=== PATIENT | male | born 2000 | race American Indian/Alaskan Native ===

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

== ENCOUNTER 2021-03-08 10:53 | Emergency (ER) | payer MEDICAID ==
[2021-03-08] MEDS ORDERED: ONDANSETRON 4 MG/2 ML INJ IV ONE (12:06)
[2021-03-08] MEDS ORDERED: MORPHINE 4 MG/1 ML INJ IV ONE (12:06)
[2021-03-08] MEDS ORDERED: SODIUM CHLORIDE 0.9% 1000 ML 1,000 ML IV ONE (12:06)
--- NOTE | 2021-03-08 12:10 | Emergency Department Report ---
HPI - General Chief Complaint: Abdominal Pain Time Seen by Provider: 03/08/21 12:02 - HPI HPI: This is a 20-year-old -[place] male presents to the emergency department with a complaint of a 1 day history of generalized abdominal pain, nausea, vomi ting. Patient says that he keeps going in between feeling "hot and cold." Patient says he has seen gastroenterology in the past for this but has gotten "no answers." When asked if the patient has any past medical history he says "I do not know." It does not appear that the patient has a primary care physician. He is an occasional tobacco smoker and a regular marijuana smoker. No recent travel or sick contacts at home. He has not taken anything for symptoms prior to presentation today. He says that his abdominal pain is 9 out of 10 in intensity. No known aggravating or alleviating factors. ED Past Medical Hx - Past Medical History Hx Asthma: Yes - Social History Smoking Status: Current Some Day Smoker Substance Use Type: None - Medications Home Medications: Home Medications Medication Instructions Recorded Confirmed Last Taken Type ALBUTEROL Inhaler(NF) [VENTOLIN 1 puff IH Q4-6H PRN #1 inha 11/15/18 Unknown Rx Inhaler(NF)] Ibuprofen [Ibu] 400 mg PO TID PRN #15 tablet 11/15/18 Unknown Rx Ibuprofen [Motrin 800 MG tab] 800 mg PO Q8HR PRN #30 tablet 05/08/20 Unknown Rx Sulfamethoxazole/Trimethoprim 1 each PO BID 7 Days #14 tablet 05/08/20 Unknown Rx [Bactrim DS TAB] Famotidine [Pepcid] 40 mg PO QHS #30 tablet 12/22/20 Unknown Rx Sucralfate [Carafate] 1 gm PO ACHS 7 Days #21 tablet 12/22/20 Unknown Rx Dicyclomine [Bentyl] 10 mg PO QID #20 capsule 03/08/21 Unknown Rx Famotidine [Pepcid] 20 mg PO BID #20 tablet 03/08/21 Unknown Rx Ondansetron [Zofran ODT TAB] 4 mg PO Q8HR PRN #15 tab.rapdis 03/08/21 Unknown Rx ED Review of Systems ROS: Stated complaint: VOMITING Other details as noted in HPI Comment: All other systems reviewed and negative Constitutional: chills, diaphoresis Eyes: denies: eye pain, vision change ENT: denies: ear pain, throat pain Respiratory: denies: cough, shortness of breath Cardiovascular: denies: chest pain, palpitations Gastrointestinal: abdominal pain, nausea, vomiting Genitourinary: denies: dysuria, discharge Musculoskeletal: denies: joint swelling, arthralgia Skin: denies: rash, lesions Neurological: denies: headache, weakness Physical Exam - Physical Exam Vital Signs: Vital Signs 03/08/21 11:16 Temperature 97.6 F Pulse Rate 80 Respiratory 24 Rate Blood Pressure 186/158 O2 Sat by Pulse 100 Oximetry Physical Exam: GENERAL: The patient is well-developed well-nourished. HENT: Normocephalic. Atraumatic. Patient has moist mucous membranes. EYES: Extraocular motions are intact. NECK: Supple. Trachea is midline. CHEST/LUNGS: Clear to auscultation. There is no respiratory distress noted. HEART/CARDIOVASCULAR: Regular. There is no tachycardia. There is no murmur. ABDOMEN: Abdomen is soft. Generalized abdominal tenderness to palpation. No guarding. Patient has normal bowel sounds. There is no abdominal distention. SKIN: Skin is warm and dry. NEURO: The patient is awake, alert, and oriented. The patient is cooperative. The patient has no focal neurologic deficits. Normal speech. MUSCULOSKELETAL: There is no tenderness or deformity. There is no limitation range of motion. ED Course Vital Signs 03/08/21 11:16 Temperature 97.6 F Pulse Rate 80 Respiratory 24 Rate Blood Pressure 186/158 O2 Sat by Pulse 100 Oximetry ED Medical Decision Making - Lab Data Result diagrams: 03/08/21 13:04 03/08/21 13:04 Lab Results 03/08/21 03/08/21 03/08/21 Range/Units 13:04 13:04 Unknown WBC 7.8 (4.5-11.0) K/mm3 RBC 5.05 H (3.65-5.03) M/mm3 Hgb 15.0 (11.8-15.2) gm/dl Hct 44.3 (35.5-45.6) % MCV 88 (84-94) fl MCH 30 (28-32) pg MCHC 34 (32-34) % RDW 13.7 (13.2-15.2) % Plt Count 132 L (140-440) K/mm3 Lymph % (Auto) 5.4 L (13.4-35.0) % [place] % (Auto) 4.9 (0.0-7.3) % Eos % (Auto) 0.0 (0.0-4.3) % Baso % (Auto) 0.2 (0.0-1.8) % Lymph # (Auto) 0.4 L (1.2-5.4) K/mm3 [place] # (Auto) 0.4 (0.0-0.8) K/mm3 Eos # (Auto) 0.0 (0.0-0.4) K/mm3 Baso # (Auto) 0.0 (0.0-0.1) K/mm3 Seg Neutrophils % 89.5 H (40.0-70.0) % Seg Neutrophils # 6.9 (1.8-7.7) K/mm3 Sodium 135 L (137-145) mmol/L Potassium 4.1 (3.6-5.0) mmol/L Chloride 101.7 (98-107) mmol/L Carbon Dioxide 23 (22-30) mmol/L Anion Gap 14 mmol/L BUN 14 (9-20) mg/dL Creatinine 0.9 (0.8-1.3) mg/dL Estimated GFR > 60 ml/min BUN/Creatinine Ratio 16 % Glucose 105 H (75-100) mg/dL Calcium 9.1 (8.4-10.2) mg/dL Total Bilirubin 0.50 (0.1-1.2) mg/dL Direct Bilirubin < 0.2 (0-0.2) mg/dL Indirect Bilirubin 0.3 mg/dL AST 23 (5-40) units/L ALT 14 (7-56) units/L Alkaline Phosphatase 87 (35-129) units/L Total Protein 6.8 (6.3-8.2) g/dL Albumin 4.3 (3.9-5) g/dL Albumin/Globulin Ratio 1.7 % Lipase 17 (13-60) units/L Urine Color Yellow (Yellow) Urine Turbidity Clear (Clear) Urine pH 9.0 H (5.0-7.0) Ur Specific [place] 1.019 (1.003-1.030) Urine Protein 100 mg/dl (Negative) mg/dL Urine Glucose (UA) Neg (Negative) mg/dL Urine Ketones 20 (Negative) mg/dL Urine Blood Neg (Negative) Urine Nitrite Neg (Negative) Urine Bilirubin Neg (Negative) Urine Urobilinogen < 2.0 (<2.0) mg/dL Ur Leukocyte Esterase Neg (Negative) Urine WBC (Auto) 1.0 (0.0-6.0) /HPF Urine RBC (Auto) 4.0 (0.0-6.0) /HPF Urine Bacteria (Auto) 1+ (Negative) /HPF - Radiology Data Radiology results: image reviewed interpreted by me: Abdominal x-ray shows nonspecific nonobstructive bowel gas. No free air. - Medical Decision Making This patient presents with acute abdominal pain, nausea, vomiting. The patient has had this multiple times in the recent past. He had an evaluation by gastroenterology 2 months ago that did not show any etiology of these symptoms. The patient is a regular marijuana smoker, but it may not be secondary to cannabinoid hyperemesis syndrome as the symptoms began prior to the patient becoming a regular marijuana smoker. On examination he has some mild abdominal reproducible tenderness to palpation. However, the abdomen is soft, nondistended and nontoxic in appearance. An abdominal x-ray was done that shows nonspecific nonobstructive bowel gas, and there is no free air. The patient's labs are mostly unremarkable including CBC, metabolic panel, lipase, urinalysis, except for some mild dehydration seen with 20 ketones in the urine. He was given IV fluid resuscitation, IV analgesia and a dose of IV antiemetics. He was reevaluated multiple times over multiple hours and is feeling greatly improved. The patient was later given a GI cocktail due to the burning sensation he felt in his throat and chest and this also helped with the symptoms. He appears safe for discharge home at this time. He was able to pass an oral challenge. He has been given a prescription for Pepcid, Bentyl and Zofran ODT. He has been instructed to follow-up with primary care and return to his ga stroenterologist. He will return to the emergency department with any worsening of his symptoms or with any acute distress. Critical Care Time: No Critical care attestation.: If time is entered above; I have spent that time in minutes in the direct care of this critically ill patient, excluding procedure time. ED Disposition Clinical Impression: Dehydration Abdominal pain Qualifiers: Abdominal location: generalized Qualified Code(s): R10.84 - Generalized abdominal pain Nausea & vomiting Qualifiers: Vomiting type: unspecified Vomiting Intractability: unspecified Qualified Code(s): R11.2 - Nausea with vomiting, unspecified Disposition: DC-01 TO HOME OR SELFCARE Is pt being admited?: No Condition: Stable Instructions: Abdominal Pain, Adult, Nausea and Vomiting, Adult, Dehydration, Adult Additional Instructions: Please increase your oral rehydration. Please follow-up with a primary care physician in the next few days. 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 Return to the emergency department with any worsening of your symptoms, new or concerning symptoms not addressed during this current emergency department visit, or with any acute distress. Prescriptions: Dicyclomine [Bentyl] 10 mg PO QID #20 capsule Famotidine [Pepcid] 20 mg PO BID #20 tablet Ondansetron [Zofran ODT TAB] 4 mg PO Q8HR PRN #15 tab.rapdis PRN Reason: nausea/vomiting Referrals: PRIMARY CARE, [Primary Care Provider] - 3-5 Days [facility] [Provider Group] - 3-5 Days Time of Disposition: 16:06
--- NOTE | 2021-03-08 13:00 | XRay Report ---
ABDOMEN 2 VIEWS INDICATION / CLINICAL INFORMATION: Abd pain. COMPARISON: None available. FINDINGS: TUBES / LINES: None. BOWEL GAS PATTERN: There is no evidence of bowel obstruction or mass effect. FREE AIR / EXTRALUMINAL GAS: None seen. ADDITIONAL FINDINGS: There is mild thoracolumbar scoliosis. CHEST: Visualized chest shows no significant abnormality. IMPRESSION: No acute abnormality. Signer Name: Charles Ortiz MD Signed: 03/08/2021 12:54 PM Workstation Name: [id number]
[2021-03-08 14:08] LABS: Basophils % (Auto) 0.2 % (0.0-1.8); Hematocrit 44.3 % (35.5-45.6); Lymphocytes # (Auto) 0.4 K/mm3 (1.2-5.4); Lymphocytes % (Auto) 5.4 % (13.4-35.0); Mean Corpuscular HGB Conc 34 % (32-34); Mean Corpuscular Volume 88 fl (84-94); Monocytes # (Auto) 0.4 K/mm3 (0.0-0.8); Monocytes % (Auto) 4.9 % (0.0-7.3); Platelet Count 132 K/mm3 (140-440); Red Blood Count 5.05 M/mm3 (3.65-5.03); Red Cell Distribution Width 13.7 % (13.2-15.2)
[2021-03-08] MEDS ORDERED: FAMOTIDINE 20 MG/2 ML INJ IV ONE (14:09)
[2021-03-08 14:32] LABS: Alanine Aminotransferase 14 units/L (7-56); Albumin 4.3 g/dL (3.9-5); BUN/Creatinine Ratio 16; Blood Urea Nitrogen 14 mg/dL (9-20); Calcium 9.1 mg/dL (8.4-10.2); Hemolysis Index 23
[2021-03-08 14:42] LABS: Bilirubin,Direct < 0.2 mg/dL (0-0.2)
[2021-03-08] MEDS ORDERED: LIDOCAINE VISCOUS 2% 15 ML ORAL LIQD PO ONE (14:59)
[2021-03-08] MEDS ORDERED: ALUM-MAG HYDROXIDE-SIMETHICONE 200-200-20MG/5ML ORAL LIQD 30 ML PO ONE (14:59)
[2021-03-08 15:53] LABS: Bacteria,Urine 1+ /HPF (Negative); Bilirubin,Urine NEG (Negative); Blood,Urine NEG (Negative); Color,Urine Yellow (Yellow); Urobilinogen,Urine < 2.0 mg/dL (<2.0)
[2021-03-08 16:50] VITALS: BP 128/52
== END 2021-03-08 16:28 | disposition home or self-care (01) ==
LOC: ED 10:53
DX: E86.0 Dehydration (principal); R11.2 Nausea with vomiting, unspecified; R10.84 Generalized abdominal pain; J45.909 Unspecified asthma, uncomplicated; F17.200 Nicotine dependence, unspecified, uncomplicated; Z79.899 Other long term (current) drug therapy
CPT/HCPCS: 36415; 74019; 80048; 80076; 81001; 83690; 85025; 96361; 96374; 96375; 99284; J2270; J2405; J7030

== ENCOUNTER 2021-07-08 16:40 | Emergency (ER) | payer MEDICAID ==
[2021-07-08] MEDS ORDERED: SUCRALFATE 1 GM/10 ML ORAL LIQD PO ONE (17:43)
[2021-07-08] MEDS ORDERED: HYDROcodone/ACETAMINOPHEN 5-325 MG TAB PO ONE (17:43)
[2021-07-08] MEDS ORDERED: ONDANSETRON 4 MG ODT TAB PO ONE (17:43)
[2021-07-08] MEDS ORDERED: FAMOTIDINE 20 MG TAB PO ONE (17:44)
--- NOTE | 2021-07-08 17:44 | Emergency Department Report ---
ED Abdominal Pain HPI - General Chief Complaint: Abdominal Pain Stated Complaint: ABD PAIN Time Seen by Provider: 07/08/21 17:16 Source: patient Mode of arrival: Ambulatory Limitations: No Limitations - History of Present Illness Initial Comments: 21-year-old male presents to the ER today with complaints of abdominal pain. Patient reports diffuse abdominal pain, but mainly upper. He states that has been having this pain constantly for the past year. Patient states that he has been to the ER for his pain has had CT scans, with unclear diagnosis. He states that he was referred to GI specialist whom he has been seen for his pain. He states that the GI specialist thinks it could be related to ulcers. He states that he and the GI specialist have talked about doing an endoscopy, but this has not been scheduled yet. He states that he has been prescribed medication to help with symptoms. He remembers being on Zofran, promethazine, Bentyl and sucralfa te, but he states that he ran out of this medication 2 weeks ago. He states that he feels like they were helping but since being out he has been having increasing abdominal pain. He states that he has been nauseous, and did vomit today. His last bowel movement was yesterday and was normal. He denies any urinary issues. He denies any prior abdominal surgeries. He states that he drinks alcohol occasionally. He does smoke marijuana. He denies any other illicit drug use. MD Complaint: abdominal pain -: year(s) (1) - Related Data Previous Rx's Medication Instructions Recorded Last Taken Type ALBUTEROL Inhaler(NF) [VENTOLIN 1 puff IH Q4-6H PRN #1 inha 11/15/18 Unknown Rx Inhaler(NF)] Ibuprofen [Ibu] 400 mg PO TID PRN #15 tablet 11/15/18 Unknown Rx Ibuprofen [Motrin 800 MG tab] 800 mg PO Q8HR PRN #30 tablet 05/08/20 Unknown Rx Sulfamethoxazole/Trimethoprim 1 each PO BID 7 Days #14 tablet 05/08/20 Unknown Rx [Bactrim DS TAB] Famotidine [Pepcid] 20 mg PO BID #20 tablet 03/08/21 Unknown Rx Dicyclomine [Bentyl] 10 mg PO QID #20 capsule 07/08/21 Unknown Rx Famotidine [Pepcid] 40 mg PO QHS #30 tablet 07/08/21 Unknown Rx Ondansetron [Zofran ODT TAB] 4 mg PO Q8HR PRN #15 tab.rapdis 07/08/21 Unknown Rx Sucralfate [Carafate] 1 gm PO ACHS 7 Days #21 tablet 07/08/21 Unknown Rx Allergies Allergy/AdvReac Type Severity Reaction Status Date / Time No Known Allergies Allergy Verified 03/08/21 12:39 ED Review of Systems ROS: Stated complaint: ABD PAIN Other details as noted in HPI Comment: All other systems reviewed and negative Constitutional: denies: chills, fever Eyes: denies: eye pain, eye discharge, vision change ENT: denies: ear pain, throat pain Respiratory: denies: cough, shortness of breath, SOB with exertion, SOB at rest, wheezing Cardiovascular: denies: chest pain, palpitations Endocrine: no symptoms reported Gastrointestinal: abdominal pain, nausea, vomiting. denies: diarrhea, constipation, hematemesis, melena, hematochezia Genitourinary: denies: urgency, dysuria, frequency, hematuria, discharge, testicular pain Musculoskeletal: denies: back pain, joint swelling, arthralgia, myalgia Skin: denies: rash, lesions, change in color, change in hair/nails, pruritus Neurological: denies: headache, weakness, numbness, paresthesias, confusion, abnormal gait, vertigo Psychiatric: denies: anxiety, depression, auditory hallucinations, visual hallucinations, homicidal thoughts, suicidal thoughts Hematological/Lymphatic: denies: easy bleeding, swollen glands ED Past Medical Hx - Past Medical History Previous Medical History?: Yes Hx Asthma: Yes - Surgical History Past Surgical History?: No - Social History Smoking Status: Current Some Day Smoker Substance Use Type: None - Medications Home Medications: Home Medications Medication Instructions Recorded Confirmed Last Taken Type ALBUTEROL Inhaler(NF) [VENTOLIN 1 puff IH Q4-6H PRN #1 inha 11/15/18 Unknown Rx Inhaler(NF)] Ibuprofen [Ibu] 400 mg PO TID PRN #15 tablet 11/15/18 Unknown Rx Ibuprofen [Motrin 800 MG tab] 800 mg PO Q8HR PRN #30 tablet 05/08/20 Unknown Rx Sulfamethoxazole/Trimethoprim 1 each PO BID 7 Days #14 tablet 05/08/20 Unknown Rx [Bactrim DS TAB] Famotidine [Pepcid] 20 mg PO BID #20 tablet 03/08/21 Unknown Rx Dicyclomine [Bentyl] 10 mg PO QID #20 capsule 07/08/21 Unknown Rx Famotidine [Pepcid] 40 mg PO QHS #30 tablet 07/08/21 Unknown Rx Ondansetron [Zofran ODT TAB] 4 mg PO Q8HR PRN #15 tab.rapdis 07/08/21 Unknown Rx Sucralfate [Carafate] 1 gm PO ACHS 7 Days #21 tablet 07/08/21 Unknown Rx ED Physical Exam - General Limitations: No Limitations General appearance: alert, in no apparent distress - Head Head exam: Present: atraumatic, normocephalic, normal inspection - Eye Eye exam: Present: normal appearance, PERRL, EOMI Pupils: Present: normal accommodation - Neck Neck exam: Present: normal inspection, full ROM - Respiratory Respiratory exam: Present: normal lung sounds bilaterally. Absent: respiratory distress, wheezes, rales, rhonchi - Cardiovascular Cardiovascular Exam: Present: regular rate, normal rhythm, normal heart sounds - GI/Abdominal GI/Abdominal exam: Present: soft, tenderness (mild epigastric ttp ). Absent: distended, guarding, rebound, rigid - Neurological Exam Neurological exam: Present: alert, oriented X3, CN II-XII intact, normal gait - Psychiatric Psychiatric exam: Present: normal affect, normal mood - Skin Skin exam: Present: intact ED Course Vital Signs 07/08/21 07/08/21 16:47 17:51 Temperature 98 F Pulse Rate 98 H Respiratory 16 16 Rate Blood Pressure 111/69 [Left] O2 Sat by Pulse 96 Oximetry ED Medical Decision Making - Lab Data Result diagrams: 07/08/21 18:14 07/08/21 18:14 - Medical Decision Making Labs reviewed and unremarkable. Patient currently sitting in the recliner, in no distress and currently on his phone. He has not had any vomiting during stay He has a nonsurgical abdominal exam. He is not toxic or ill-appearing. Is neurologically intact. The history, exam, diagnostic testing and current condition do not suggest acute appendicitis, bowel obstruction, acute cholecystitis, bowel perforation, major GI bleed, testicular torsion, sepsis or other significant pathology to warrant further testing, continued ED treatment, admission or surgical evaluation at this point. Discussed results with patient. Informed him that he needs to called to follow- up with his GI specialist to get that endoscopy scheduled. In the meantime we will get refills on his medications. Patient expressed understanding of all instructions and agree with plan. Patient stable at time of discharge. Critical care attestation.: If time is entered above; I have spent that time in minutes in the direct care of this critically ill patient, excluding procedure time. ED Disposition Clinical Impression: Chronic abdominal pain Disposition: HOME / SELF CARE / HOMELESS Is pt being admited?: No Does the pt Need Aspirin: No Condition: Stable Instructions: Abdominal Pain, Adult, [id number] Additional Instructions: I recommend that you take the medications as prescribed. I recommend that you continue follow-up with your GI specialist to get that endoscopy done. Return to the ER if your symptoms changes or worsens in any way. Prescriptions: Famotidine [Pepcid] 40 mg PO QHS #30 tablet Dicyclomine [Bentyl] 10 mg PO QID #20 capsule Sucralfate [Carafate] 1 gm PO ACHS 7 Days #21 tablet Ondansetron [Zofran ODT TAB] 4 mg PO Q8HR PRN #15 tab.rapdis PRN Reason: nausea/vomiting Referrals: [facility] [Provider Group] - 3-5 Days Time of Disposition: 19:45 Print Language: MAURITIAN
[2021-07-08 18:48] LABS: Basophils % (Auto) 0.3 % (0.0-1.8); Eosinophils % (Auto) 0.2 % (0.0-4.3); Hematocrit 44.6 % (35.5-45.6); Hemoglobin 14.7 gm/dl (11.8-15.2); Mean Corpuscular HGB Conc 33 % (32-34); Mean Corpuscular Volume 89 fl (84-94); Monocytes # (Auto) 0.4 K/mm3 (0.0-0.8); Monocytes % (Auto) 8.8 % (0.0-7.3); Platelet Count 174 K/mm3 (140-440); Red Blood Count 5.02 M/mm3 (3.65-5.03); Red Cell Distribution Width 13.8 % (13.2-15.2)
[2021-07-08 18:50] LABS: Alanine Aminotransferase 13 units/L (7-56); Albumin 4.8 g/dL (3.9-5); BUN/Creatinine Ratio 12; Blood Urea Nitrogen 11 mg/dL (9-20); Calcium 9.5 mg/dL (8.4-10.2); Hemolysis Index 13
[2021-07-08 20:04] VITALS: BP 124/62
== END 2021-07-08 20:52 | disposition home or self-care (01) ==
LOC: ED 16:40
DX: R10.9 Unspecified abdominal pain (principal); J45.909 Unspecified asthma, uncomplicated; F17.200 Nicotine dependence, unspecified, uncomplicated
CPT/HCPCS: 36415; 80053; 83690; 85025; 99283; Q0162

== ENCOUNTER 2022-02-16 15:33 | Emergency (ER) | payer MEDICAID ==
--- NOTE | 2022-02-16 16:46 | Emergency Department Report ---
ED General Adult HPI - General Stated complaint: RT INJURY PUI?: No Time Seen by Provider: 02/16/22 16:17 - History of Present Illness Initial comments: . Severity scale (0 -10): 7 - Related Data Previous Rx's Medication Instructions Recorded Last Taken Type ALBUTEROL Inhaler(NF) [VENTOLIN 1 puff IH Q4-6H PRN #1 inha 11/15/18 Unknown Rx Inhaler(NF)] Ibuprofen [Ibu] 400 mg PO TID PRN #15 tablet 11/15/18 Unknown Rx Ibuprofen [Motrin 800 MG tab] 800 mg PO Q8HR PRN #30 tablet 05/08/20 Unknown Rx Sulfamethoxazole/Trimethoprim 1 each PO BID 7 Days #14 tablet 05/08/20 Unknown Rx [Bactrim DS TAB] Famotidine [Pepcid] 20 mg PO BID #20 tablet 03/08/21 Unknown Rx Dicyclomine [Bentyl] 10 mg PO QID #20 capsule 07/08/21 Unknown Rx Famotidine [Pepcid] 40 mg PO QHS #30 tablet 07/08/21 Unknown Rx Ondansetron [Zofran ODT TAB] 4 mg PO Q8HR PRN #15 tab.rapdis 07/08/21 Unknown Rx Sucralfate [Carafate] 1 gm PO ACHS 7 Days #21 tablet 07/08/21 Unknown Rx Allergies Allergy/AdvReac Type Severity Reaction Status Date / Time No Known Allergies Allergy Verified 03/08/21 12:39 ED Review of Systems ROS: Stated complaint: RT INJURY Other details as noted in HPI ED Past Medical Hx - Past Medical History Hx Asthma: Yes - Social History Smoking Status: Never Smoker Substance Use Type: None - Medications Home Medications: Home Medications Medication Instructions Recorded Confirmed Last Taken Type ALBUTEROL Inhaler(NF) [VENTOLIN 1 puff IH Q4-6H PRN #1 inha 11/15/18 Unknown Rx Inhaler(NF)] Ibuprofen [Ibu] 400 mg PO TID PRN #15 tablet 11/15/18 Unknown Rx Ibuprofen [Motrin 800 MG tab] 800 mg PO Q8HR PRN #30 tablet 05/08/20 Unknown Rx Sulfamethoxazole/Trimethoprim 1 each PO BID 7 Days #14 tablet 05/08/20 Unknown Rx [Bactrim DS TAB] Famotidine [Pepcid] 20 mg PO BID #20 tablet 03/08/21 Unknown Rx Dicyclomine [Bentyl] 10 mg PO QID #20 capsule 07/08/21 Unknown Rx Famotidine [Pepcid] 40 mg PO QHS #30 tablet 07/08/21 Unknown Rx Ondansetron [Zofran ODT TAB] 4 mg PO Q8HR PRN #15 tab.rapdis 07/08/21 Unknown Rx Sucralfate [Carafate] 1 gm PO ACHS 7 Days #21 tablet 07/08/21 Unknown Rx ED Physical Exam - General General appearance: alert, in no apparent distress - Head Head exam: Present: atraumatic, normocephalic - Eye Eye exam: Present: normal appearance - ENT ENT exam: Present: mucous membranes moist - Neck Neck exam: Present: normal inspection - Respiratory Respiratory exam: Present: normal lung sounds bilaterally. Absent: respiratory distress - Cardiovascular Cardiovascular Exam: Present: regular rate, normal rhythm. Absent: systolic murmur, diastolic murmur, rubs, gallop - GI/Abdominal GI/Abdominal exam: Present: soft, normal bowel sounds - Rectal Rectal exam: Present: deferred - Extremities Exam Extremities exam: Present: normal inspection - Back Exam Back exam: Present: normal inspection - Neurological Exam Neurological exam: Present: alert, oriented X3 - Psychiatric Psychiatric exam: Present: normal affect, normal mood - Skin Skin exam: Present: warm, dry, intact, normal color. Absent: rash Critical care attestation.: If time is entered above; I have spent that time in minutes in the direct care of this critically ill patient, excluding procedure time. ED Disposition Disposition: 01 HOME / SELF CARE / HOMELESS Is pt being admited?: No Does the pt Need Aspirin: No Condition: Stable
[2022-02-16] MEDS ORDERED: LORazepam 1 MG TAB PO ONE (16:58)
[2022-02-16 18:03] VITALS: BP 142/65
--- NOTE | 2022-02-16 18:51 | XRay Report ---
RIGHT FOREARM 2 VIEWS RIGHT WRIST 4 VIEWS RIGHT HAND 3 VIEWS INDICATION: Right upper extremity pain after fall. COMPARISON: No relevant prior imaging study available. FINDINGS: Right hand: No acute skeletal abnormality. No significant soft tissue swelling. Right wrist: No acute skeletal abnormality. No soft tissue swelling. Right forearm: No acute fracture or dislocation. No focal soft tissue swelling. IMPRESSION: 1. No acute findings. Signer Name: Julian Roberts MD Signed: 02/16/2022 6:47 PM Workstation Name: [id number]
[2022-02-16] MEDS ORDERED: IBUPROFEN 600 MG TAB PO ONE (20:03)
[2022-02-16] MEDS ORDERED: oxyCODONE /ACETAMINOPHEN 5-325MG TAB PO ONE (20:03)
[2022-02-16] MEDS ORDERED: ONDANSETRON 4 MG ODT TAB PO ONE (20:03)
--- NOTE | 2022-02-16 20:08 | Emergency Department Report ---
ED Fall HPI - General Chief Complaint: Extremity Injury, Upper Stated Complaint: RT INJURY Time Seen by Provider: 02/16/22 16:17 Source: patient Mode of arrival: Ambulatory - History of Present Illness Initial Comments: Patient is a 21-year-old -[place] male with no past medical history presents to the ED with complaint of acute onset persistent right forearm pain, right wrist pain and right hand pain after he tripped on the stairs and fell down after tripping over his dog while coming down the stairs about 4 hours ago. Patient states that he is unable to perform any active range of motion of the right arm because of worsening pain. Patient denies loss of consciousness, head or neck injuries, back pain, hip pain, lower extremity pain, nausea and vomiting, change in vision, numbness and tingling or weakness of upper and lower extremities bilaterally. MD Complaint: fall, other (Right forearm, right wrist and right hand pain after falling down the stairs) -: hour(s) (3) Fall From: standing, down stairs (#) (3) When Fall Occurred: 1-3 hours [employer] Fall Witnessed: yes, by family Place Fall Occurred: home Loss of Consciousness: none Prolonged Down Time?: no Symptoms Prior to Fall: none Location: other (Right forearm, right wrist and right hand) Location - Extremities: Right: Forearm (Pain), Hand (Pain) Severity: severe Severity scale (0 -10): 8 Quality: sharp, aching Context: tripped/slipped Associated Symptoms: denies. denies: headache, neck pain, numbness, weakness, chest paint, shortness of breath, abdominal pain, hematuria, lightheaded, vertigo, confusion, other - Related Data Previous Rx's Medication Instructions Recorded Last Taken Type ALBUTEROL Inhaler(NF) [VENTOLIN 1 puff IH Q4-6H PRN #1 inha 11/15/18 Unknown Rx Inhaler(NF)] Ibuprofen [Ibu] 400 mg PO TID PRN #15 tablet 11/15/18 Unknown Rx Sulfamethoxazole/Trimethoprim 1 each PO BID 7 Days #14 tablet 05/08/20 Unknown Rx [Bactrim DS TAB] Famotidine [Pepcid] 20 mg PO BID #20 tablet 03/08/21 Unknown Rx Dicyclomine [Bentyl] 10 mg PO QID #20 capsule 07/08/21 Unknown Rx Famotidine [Pepcid] 40 mg PO QHS #30 tablet 07/08/21 Unknown Rx Ondansetron [Zofran ODT TAB] 4 mg PO Q8HR PRN #15 tab.rapdis 07/08/21 Unknown Rx Sucralfate [Carafate] 1 gm PO ACHS 7 Days #21 tablet 07/08/21 Unknown Rx Baclofen 20 mg PO Q12H PRN #20 tab 02/16/22 Unknown Rx Ibuprofen [Motrin 800 MG tab] 800 mg PO Q8HR PRN #30 tablet 02/16/22 Unknown Rx Allergies Allergy/AdvReac Type Severity Reaction Status Date / Time No Known Allergies Allergy Verified 03/08/21 12:39 ED Review of Systems ROS: Stated complaint: RT INJURY Other details as noted in HPI Constitutional: denies: chills, fever Eyes: denies: eye pain, eye discharge, vision change ENT: denies: ear pain, throat pain Respiratory: denies: cough, shortness of breath, wheezing Cardiovascular: denies: chest pain, palpitations Endocrine: no symptoms reported Gastrointestinal: denies: abdominal pain, nausea, diarrhea Genitourinary: denies: urgency, dysuria Musculoskeletal: arthralgia (Right hand, right wrist and right forearm pain). denies: back pain, joint swelling Skin: denies: rash, lesions Neurological: denies: headache, weakness, paresthesias Psychiatric: denies: anxiety, depression Hematological/Lymphatic: denies: easy bleeding, easy bruising ED Past Medical Hx - Past Medical History Hx Asthma: Yes - Surgical History Past Surgical History?: No - Social History Smoking Status: Never Smoker - Medications Home Medications: Home Medications Medication Instructions Recorded Confirmed Last Taken Type ALBUTEROL Inhaler(NF) [VENTOLIN 1 puff IH Q4-6H PRN #1 inha 11/15/18 Unknown Rx Inhaler(NF)] Ibuprofen [Ibu] 400 mg PO TID PRN #15 tablet 11/15/18 Unknown Rx Sulfamethoxazole/Trimethoprim 1 each PO BID 7 Days #14 tablet 05/08/20 Unknown Rx [Bactrim DS TAB] Famotidine [Pepcid] 20 mg PO BID #20 tablet 03/08/21 Unknown Rx Dicyclomine [Bentyl] 10 mg PO QID #20 capsule 07/08/21 Unknown Rx Famotidine [Pepcid] 40 mg PO QHS #30 tablet 07/08/21 Unknown Rx Ondansetron [Zofran ODT TAB] 4 mg PO Q8HR PRN #15 tab.rapdis 07/08/21 Unknown Rx Sucralfate [Carafate] 1 gm PO ACHS 7 Days #21 tablet 07/08/21 Unknown Rx Baclofen 20 mg PO Q12H PRN #20 tab 02/16/22 Unknown Rx Ibuprofen [Motrin 800 MG tab] 800 mg PO Q8HR PRN #30 tablet 02/16/22 Unknown Rx ED Physical Exam - General Limitations: No Limitations General appearance: alert, in no apparent distress - Head Head exam: Present: atraumatic, normocephalic, normal inspection - Eye Eye exam: Present: normal appearance, PERRL, EOMI Pupils: Present: normal accommodation - ENT ENT exam: Present: normal exam, normal orophraynx, mucous membranes moist, TM's normal bilaterally, normal external ear exam - Neck Neck exam: Present: normal inspection, full ROM. Absent: tenderness - Respiratory Respiratory exam: Present: normal lung sounds bilaterally. Absent: respiratory distress, wheezes, rales, stridor, chest wall tenderness, accessory muscle use, decreased breath sounds, prolonged expiratory - Cardiovascular Cardiovascular Exam: Present: regular rate, normal rhythm, normal heart sounds. Absent: systolic murmur, diastolic murmur, rubs, gallop - GI/Abdominal GI/Abdominal exam: Present: soft, normal bowel sounds. Absent: tenderness, guarding, rebound, hyperactive bowel sounds, hypoactive bowel sounds, organomegaly, mass - Extremities Exam Extremities exam: Present: normal inspection, tenderness (Palpable right hand, right wrist and right forearm tenderness with mild swelling and limited range of motion due to pain), normal capillary refill, joint swelling (Swollen, tender right wrist, right forearm and right hand). Absent: full ROM (Limited range of motion of right wrist, right hand and right forearm due to pain), pedal edema, calf tenderness - Back Exam Back exam: Present: normal inspection - Neurological Exam Neurological exam: Present: alert, oriented X3, CN II-XII intact, normal gait, reflexes normal - Psychiatric Psychiatric exam: Present: normal affect, normal mood - Skin Skin exam: Present: warm, dry, intact, normal color. Absent: rash ED Course Vital Signs 02/16/22 18:01 Temperature 98.4 F Pulse Rate 85 Respiratory 18 Rate Blood Pressure 142/65 O2 Sat by Pulse 99 Oximetry ED Medical Decision Making - Radiology Data Radiology results: report reviewed, image reviewed [facility] [address] [place] [address] XRay Report Signed Patient: PEDRO ESCALONA MR#: [id number] : 2000 Acct:[id number] Age/Sex: 21 / M ADM Date: 02/16/22 Loc: ED Attending Dr: Ordering Physician: PAM ALVAREZ Date of Service: 02/16/22 Procedure(s): XR forearm RT Accession Number(s): [id number] cc: PAM ALVAREZ Fluoro Time In Minutes: RIGHT FOREARM 2 VIEWS RIGHT WRIST 4 VIEWS RIGHT HAND 3 VIEWS INDICATION: Right upper extremity pain after fall. COMPARISON: No relevant prior imaging study available. FINDINGS: Right hand: No acute skeletal abnormality. No significant soft tissue swelling. Right wrist: No acute skeletal abnormality. No soft tissue swelling. Right forearm: No acute fracture or dislocation. No focal soft tissue swelling. IMPRESSION: 1. No acute findings. Signer Name: Julian Roberts MD Signed: 02/16/2022 6:47 PM Workstation Name: [id number] Transcribed By: Dictated By: Julian Roberts MD Electronically Authenticated By: Julian Roberts MD Signed Date/Time: 02/16/221846 DD/ 44 TD/TT: - Medical Decision Making This is a 21-year-old -[place] male with no past medical history presents to the ED with complaint of acute onset persistent right forearm pain, right wrist pain and right hand pain after he tripped on the stairs and fell down after tripping over his dog while coming down the stairs about 4 hours ago. Patient states that he is unable to perform any active range of motion of the right arm because of worsening pain. Patient was treated for pain in the ED. Right wrist x-ray, right hand x-ray and right forearm x-rays showed no acute fractures or subluxations. Patient's injuries are likely musculoskeletal following the fall at home. Patient was discharged home on medications for pain and advised to follow-up with his primary care physician in 7 to 10 days for reevaluation. Patient was advised to return to the ED immediately if symptoms get worse. - Differential Diagnosis Hand contusion; wrist sprain; forearm contusion; muscle strain Critical care attestation.: If time is entered above; I have spent that time in minutes in the direct care of this critically ill patient, excluding procedure time. ED Disposition Clinical Impression: Contusion of right wrist, initial encounter, Contusion of right forearm, initial encounter Sprain of right wrist Qualifiers: Encounter type: initial encounter Qualified Code(s): S63.501A - Unspecified sprain of right wrist, initial encounter Disposition: HOME / SELF CARE / HOMELESS Is pt being admited?: No Does the pt Need Aspirin: No Condition: Stable Instructions: Wrist Sprain, Adult, Contusion, [id number], Intermetacarpal Sprain Additional Instructions: The right hand x-ray, right wrist and right forearm x-rays showed no acute fractures or subluxations. Your injuries are likely musculoskeletal following the fall at home prior to arrival in the ER. Therefore take medications with food, drink plenty of fluids and follow-up with your primary care physician in 7 to 10 days for reevaluation or return to the ED immediately if symptoms get worse. Prescriptions: Baclofen 20 mg PO Q12H PRN #20 tab PRN Reason: Muscle Spasm Ibuprofen [Motrin 800 MG tab] 800 mg PO Q8HR PRN #30 tablet PRN Reason: pain Referrals: [facility] [Provider Group] - 3-5 Days Forms: Work/School Release Form(ED) Time of Disposition: 20:12 Print Language: SAO TOMEAN
== END 2022-02-16 20:31 | disposition home or self-care (01) ==
LOC: ED 15:33
DX: S63.501A Unspecified sprain of right wrist, initial encounter (principal); W10.9XXA Fall (on) (from) unspecified stairs and steps, initial encounter; Y93.89 Activity, other specified; Y92.89 Other specified places as the place of occurrence of the external cause; Y99.8 Other external cause status
CPT/HCPCS: 99283; J3490; Q0162